=== PATIENT | female | born 1955 | race African-American/Black ===

== ENCOUNTER 2022-12-25 12:57 | Inpatient (IN) | payer MEDICARE, MEDICAID ==
[~2022-12-25] VITALS: Ht 162.6 cm; Wt 61.9 kg
[2022-12-25] MEDS ORDERED: ALBUTEROL (0.083%) 2.5MG/3ML NEB HHN STA (13:16)
[2022-12-25] MEDS ORDERED: PREDNISONE 20MG TABLET PO STA (13:16)
[2022-12-25] MEDS ORDERED: IPRATROPIUM BROMIDE (0.02%) 0.5MG/2.5ML NEB HHN STA (13:16)
[2022-12-25 13:26] VITALS: PULSE 122; RESP 25; O2SAT 93
[2022-12-25] MEDS: HYDROMORPHONE HCL/PF 2MG/ML CPJ IM PRN ×2 (13:57→18:13)
[2022-12-25] MEDS ORDERED: SODIUM CHLORIDE 0.9% 1,000 ML IV ONE (14:30)
[2022-12-25] MEDS ORDERED: AZITHROMYCIN 500 MG in DEXT 5% WATER 250 ML IV SCH (15:00)
[2022-12-25] MEDS ORDERED: CEFTRIAXONE 1GM PREMIX 50 ML IV ONE (15:00)
[2022-12-25 15:05] LABS: CHLORIDE 106 mEq/L (98-107); INDEX HEMOLYSI 1 (1-3); INDEX ICTERIC 1 (1-4); INDEX LIPEMIC 1 (1-3); POTASSIUM 3.9 mEq/L (3.5-5.1); SODIUM 141 mEq/L (136-145)
[2022-12-25 15:15] LABS: ALANINE AMINOTRANSFERASE 24 IU/L (13-61); ALBUMIN 3.5 g/dL (3.4-5.0); ASPARTATE AMINOTRANSFERASE 24 IU/L (15-37); BILIRUBIN TOTAL 0.2 mg/dL (0.1-1.0); CALCIUM 8.8 mg/dL (8.5-10.1); CARBON DIOXIDE 32 mEq/L (21-32); CREATININE 0.8 mg/dL (0.6-1.3); GLUCOSE 102 mg/dL (70-105); NT PRO B-TYPE NATRIURETIC PEP 337 pg/mL (5-125); PROTEIN TOTAL 7.6 g/dL (6.0-8.3); UREA NITROGEN BLOOD 9 mg/dL (7-21)
[2022-12-25 15:20] LABS: BASOPHILS % 0.5 % (0.0-2.0); EOSINOPHILS % 3.3 % (0.0-5.0); HEMATOCRIT. 34.3 % (36.0-48.0); LYMPHOCYTES % 22.2 % (20.0-50.0); MEAN CORPUSCULAR HEMOGLOBIN 27.9 pg (28.0-32.0); MEAN CORPUSCULAR HGB CONC 32.2 g/dL (31.0-37.0); MEAN CORPUSCULAR VOLUME 86.5 fL (81.0-99.0); MEAN PLATELET VOLUME 7.8 fl (7.4-10.4); MONOCYTES % 5.9 % (2.0-8.0); NEUTROPHILS % 68.1 % (40.0-76.0); PLATELET 306 x1000/uL (130-400); RED BLOOD CELL COUNT 3.96 mill/uL (4.2-5.4); RED CELL DISTRIBUTION WIDTH 13.5 % (11.6-14.6); WHITE BLOOD COUNT 7.4 x1000/uL (4.5-11.0)
[2022-12-25 16:21] LABS: TROPONIN I HIGH SENSITIVITY 2084 ng/L (<54)
[2022-12-25] MEDS ORDERED: METOPROLOL TARTRATE 5MG/5ML VIAL IV NR (16:30)
[2022-12-25] MEDS ORDERED: ASPIRIN 325MG EC TABLET PO NR (16:30)
[2022-12-25] MEDS ORDERED: ENOXAPARIN 80MG/0.8ML SYR SUBCUT NR (16:30)
[2022-12-25] MEDS ORDERED: MORPHINE SULFATE 4 MG/ML CPJ (NOT FOR IM USE) IV ONE (16:45)
[2022-12-25 16:56] VITALS: RESP 29
[2022-12-25] MEDS ORDERED: NITROGLYCERIN OINT 1GM/INCH UDPKT TD NR (17:00)
[2022-12-25] MEDS ORDERED: CEFTRIAXONE 1GM PREMIX 50 ML IV NR (17:00)
[2022-12-25] MEDS ORDERED: ENOXAPARIN 60MG/0.6ML SYR SUBCUT SCH (17:00)
[2022-12-25] MEDS ORDERED: AZITHROMYCIN 500MG/250ML 250 ML IV NR (17:00)
[2022-12-25] MEDS ORDERED: NITROGLYCERIN 0.4MG TABLET SL SL PRN ×2 (17:00→20:30)
[2022-12-25 17:01] LABS: ETHANOL BLOOD < 10 mg/dL (-10)
[2022-12-25] MEDS ORDERED: LORAZEPAM 2MG/ML CPJ IV ONE (17:30)
[2022-12-25 17:57] LABS: BG BASE EXCESS -3.4 mmol/L (-2.0-2.0); BG CARBOXYHEMOGLOBIN 0.3 % (0.5-1.5); BG DEOXYHEMOGLOBIN 1.5 % (0.0-5.0); BG FRACTION INSPIRED OXYGEN 60; BG HCO3 ACT 25.8 mmol/L (22.0-26.0); BG METHEMOGLOBIN 0.3 % (0.0-1.5); BG OXYGEN SATURATION 98.5 % (92.0-98.5); BG OXYHEMOGLOBIN 97.9 % (94.0-97.0); BG PCO2 67.9 mmHg (35.0-45.0); BG PH 7.197 (7.350-7.450); BG PO2 149.6 mmHg (75.0-100.0); BG SAMPLE SITE RIGHT RADIAL; BG TOTAL HEMOGLOBIN 11.9 g/dL (12.0-18.0); BG TOTAL RESPIRATORY RATE 21 b/min; BG VENT MODE MASK - BIPAP
[2022-12-25] MEDS ORDERED: IPRATROPIUM BROMIDE (0.02%) 0.5MG/2.5ML NEB HHN NR (18:30)
[2022-12-25] MEDS ORDERED: METHYLPREDNISOLONE SOD SUCC 125MG VIAL IV NR (18:30)
[2022-12-25] MEDS ORDERED: ALBUTEROL (0.083%) 2.5MG/3ML NEB HHN NR (18:30)
[2022-12-25 18:39] VITALS: RESP 23
[2022-12-25] MEDS ORDERED: FENTANYL CITRATE/PF 50MCG/ML 2ML VIAL IV ONE (19:15)
[2022-12-25] MEDS ORDERED: PROPOFOL 10MG/ML 100ML 100 ML IV ONE (19:15)
[2022-12-25 19:45] VITALS: RESP 20
[2022-12-25] MEDS ORDERED: ACETAMINOPHEN 325MG TABLET PO PRN (20:30)
[2022-12-25] MEDS ORDERED: IPRATROPIUM/ALBUTEROL 0.5-3(2.5)MG/3ML NEB NEB PRN (20:30)
[2022-12-25] MEDS ORDERED: GUAIFENESIN 200MG/10ML SUGAR FREE UDC PO PRN (20:30)
[2022-12-25] MEDS ORDERED: MAGNESIUM/ALUMINUM HYDROXIDE/SIMETHICONE 30ML UDC PO PRN (20:30)
[2022-12-25] MEDS ORDERED: ONDANSETRON HCL 4MG/2ML INJ IV PRN (20:30)
[2022-12-25] MEDS ORDERED: DOCUSATE SODIUM 100MG CAPSULE PO PRN (20:30)
[2022-12-25 20:55] LABS: BG BASE EXCESS -2.8 mmol/L (-2.0-2.0); BG CARBOXYHEMOGLOBIN 0.3 % (0.5-1.5); BG DEOXYHEMOGLOBIN 0.3 % (0.0-5.0); BG FRACTION INSPIRED OXYGEN 100; BG HCO3 ACT 24.3 mmol/L (22.0-26.0); BG METHEMOGLOBIN 0.2 % (0.0-1.5); BG OXYGEN SATURATION 99.7 % (92.0-98.5); BG OXYHEMOGLOBIN 99.2 % (94.0-97.0); BG PO2 454.2 mmHg (75.0-100.0); BG SAMPLE SITE RIGHT RADIAL; BG TOTAL HEMOGLOBIN 11.5 g/dL (12.0-18.0); BG VENT MODE VENT - AC
[2022-12-25 21:16] LABS: T4 FREE 1.05 ng/dL (0.76-1.46)
[2022-12-25 21:25] LABS: TROPONIN I HIGH SENSITIVITY 3958 ng/L (<54)
[2022-12-25 21:38] LABS: FOLIC ACID (FOLATE) SERUM 7.2 ng/mL (>5.38)
[2022-12-25 21:56] LABS: LACTIC ACID 2.7 mmol/L (0.4-2.0)
[2022-12-25 22:10] VITALS: PULSE 100; RESP 20
[2022-12-25] MEDS: MEROPENEM 1,000 MG in SODIUM CHLORIDE 0.9% 100 ML IV SCH (22:44)
[2022-12-25] MEDS: DEXT 5%/LACTATED RINGERS 1,000 ML IV SCH (22:44)
[2022-12-26] VITALS (52 sets, daily range): BP systolic 122–150; BP diastolic 60–107; PULSE 102–128; RESP 23–38; TEMP 98
[2022-12-26] MEDS: IPRATROPIUM/ALBUTEROL 0.5-3(2.5)MG/3ML NEB HHN SCH ×5 (00:24→20:30)
[2022-12-26] MEDS: METHYLPREDNISOLONE SOD SUCC 125MG VIAL IV SCH ×3 (02:00→17:32)
[2022-12-26] MEDS: PROPOFOL 10MG/ML 100ML 100 ML IV PRN ×4 (02:51→20:22)
[2022-12-26] MEDS ORDERED: DEXT 5%/0.9% NACL 1,000 ML IV ONE (03:00)
[2022-12-26] MEDS: MEROPENEM 1,000 MG in SODIUM CHLORIDE 0.9% 100 ML IV SCH ×2 (06:24→17:32)
[2022-12-26 06:37] LABS: BASOPHILS % 0.1 % (0.0-2.0); HEMATOCRIT. 30.7 % (36.0-48.0); HEMOGLOBIN. 10.2 g/dL (12.0-16.0); LYMPHOCYTES % 21.7 % (20.0-50.0); MEAN CORPUSCULAR HEMOGLOBIN 28.8 pg (28.0-32.0); MEAN CORPUSCULAR HGB CONC 33.3 g/dL (31.0-37.0); MEAN CORPUSCULAR VOLUME 86.3 fL (81.0-99.0); MEAN PLATELET VOLUME 7.9 fl (7.4-10.4); MONOCYTES % 5.1 % (2.0-8.0); NEUTROPHILS % 73.1 % (40.0-76.0); PLATELET 277 x1000/uL (130-400); RED BLOOD CELL COUNT 3.56 mill/uL (4.2-5.4); RED CELL DISTRIBUTION WIDTH 13.8 % (11.6-14.6); WHITE BLOOD COUNT 3.5 x1000/uL (4.5-11.0)
[2022-12-26 06:55] LABS: CHLORIDE 105 mEq/L (98-107); INDEX HEMOLYSI 1 (1-3); INDEX ICTERIC 1 (1-4); INDEX LIPEMIC 1 (1-3); POTASSIUM 4.1 mEq/L (3.5-5.1); SODIUM 137 mEq/L (136-145)
[2022-12-26 07:06] LABS: ALANINE AMINOTRANSFERASE 23 IU/L (13-61); ASPARTATE AMINOTRANSFERASE 37 IU/L (15-37); BILIRUBIN TOTAL 0.7 mg/dL (0.1-1.0); CALCIUM 8.4 mg/dL (8.5-10.1); CARBON DIOXIDE 27 mEq/L (21-32); CREATININE 0.8 mg/dL (0.6-1.3); GLUCOSE 201 mg/dL (70-105); PHOSPHORUS 2.4 mg/dL (2.5-4.9); PROTEIN TOTAL 6.7 g/dL (6.0-8.3); UREA NITROGEN BLOOD 12 mg/dL (7-21)
[2022-12-26 07:16] LABS: CREATINE KINASE MB FRACTION 7.6 ng/mL (0.5-3.6)
[2022-12-26 07:23] LABS: BG BASE EXCESS 2.1 mmol/L (-2.0-2.0); BG CARBOXYHEMOGLOBIN 0.3 % (0.5-1.5); BG DEOXYHEMOGLOBIN 0.5 % (0.0-5.0); BG HCO3 ACT 25.5 mmol/L (22.0-26.0); BG METHEMOGLOBIN 0.2 % (0.0-1.5); BG OXYGEN SATURATION 99.5 % (92.0-98.5); BG PCO2 35.3 mmHg (35.0-45.0); BG PH 7.476 (7.350-7.450); BG PO2 273.8 mmHg (75.0-100.0); BG SAMPLE SITE RIGHT RADIAL; BG TOTAL HEMOGLOBIN 11.2 g/dL (12.0-18.0); BG VENT MODE VENT - AC
[2022-12-26] MEDS ORDERED: MAGNESIUM 2 G PREMIX 50 ML IV NR (07:45)
[2022-12-26] MEDS ORDERED: SODIUM PHOS,M-BASIC-D-BASIC 10 MM in DEXT 5% WATER 246.6667 ML IV NR (09:00)
[2022-12-26] MEDS: DEXT 5%/LACTATED RINGERS 1,000 ML IV SCH ×2 (10:58→23:10)
[2022-12-26] MEDS: ASPIRIN 325MG EC TABLET PO SCH (10:58)
[2022-12-26] MEDS: PANTOPRAZOLE SODIUM 40 MG/VIAL IV SCH (10:58)
[2022-12-26] MEDS: ENOXAPARIN 40MG/0.4ML SYR SUBCUT SCH (10:59)
[2022-12-27] VITALS (102 sets, daily range): BP systolic 122–153; BP diastolic 75–111; PULSE 100–126; RESP 19–38; TEMP 97.7–98.4
[2022-12-27] MEDS: IPRATROPIUM/ALBUTEROL 0.5-3(2.5)MG/3ML NEB HHN SCH ×6 (00:14→20:20)
[2022-12-27] MEDS: METHYLPREDNISOLONE SOD SUCC 125MG VIAL IV SCH ×3 (02:19→17:54)
[2022-12-27] MEDS: PROPOFOL 10MG/ML 100ML 100 ML IV PRN ×4 (03:39→17:53)
[2022-12-27] MEDS: CLONIDINE 0.1MG TABLET PO PRN (04:07)
[2022-12-27 05:44] LABS: HEMATOCRIT 33.5 % (36.0-48.0); HEMOGLOBIN 10.9 g/dL (12.0-16.0); MEAN CORPUSCULAR HGB CONC 32.4 g/dL (31.0-37.0); MEAN CORPUSCULAR VOLUME 86.4 fL (81.0-99.0); PLATELET 279 x1000/uL (130-400); RED BLOOD CELL COUNT 3.88 mill/uL (4.2-5.4); WHITE BLOOD COUNT 8.9 x1000/uL (4.5-11.0)
[2022-12-27 05:45] LABS: CHLORIDE 103 mEq/L (98-107); INDEX HEMOLYSI 1 (1-3); INDEX ICTERIC 1 (1-4); INDEX LIPEMIC 1 (1-3); POTASSIUM 3.7 mEq/L (3.5-5.1); SODIUM 137 mEq/L (136-145)
[2022-12-27 05:52] LABS: ALANINE AMINOTRANSFERASE 22 IU/L (13-61); ALBUMIN 3.3 g/dL (3.4-5.0); ASPARTATE AMINOTRANSFERASE 36 IU/L (15-37); BILIRUBIN TOTAL 0.3 mg/dL (0.1-1.0); CARBON DIOXIDE 27 mEq/L (21-32); CREATININE 0.7 mg/dL (0.6-1.3); GLUCOSE 167 mg/dL (70-105); PHOSPHORUS 2.8 mg/dL (2.5-4.9); PROTEIN TOTAL 7.3 g/dL (6.0-8.3); TRIGLYCERIDE 148 mg/dL (0-150); UREA NITROGEN BLOOD 14 mg/dL (7-21)
[2022-12-27] MEDS: MEROPENEM 1,000 MG in SODIUM CHLORIDE 0.9% 100 ML IV SCH ×2 (06:14→17:54)
[2022-12-27 08:28] LABS: BG BASE EXCESS 4.2 mmol/L (-2.0-2.0); BG CARBOXYHEMOGLOBIN 0.3 % (0.5-1.5); BG DEOXYHEMOGLOBIN 1.8 % (0.0-5.0); BG FRACTION INSPIRED OXYGEN 60; BG HCO3 ACT 28.2 mmol/L (22.0-26.0); BG METHEMOGLOBIN 0.2 % (0.0-1.5); BG OXYGEN SATURATION 98.2 % (92.0-98.5); BG OXYHEMOGLOBIN 97.7 % (94.0-97.0); BG PH 7.466 (7.350-7.450); BG PO2 115.6 mmHg (75.0-100.0); BG SAMPLE SITE LEFT RADIAL; BG TOTAL HEMOGLOBIN 11.1 g/dL (12.0-18.0); BG VENT MODE VENT - AC
[2022-12-27] MEDS: PANTOPRAZOLE SODIUM 40 MG/VIAL IV SCH (09:44)
[2022-12-27] MEDS: ENOXAPARIN 40MG/0.4ML SYR SUBCUT SCH (09:45)
[2022-12-27] MEDS: ASPIRIN 325MG EC TABLET PO SCH (09:45)
[2022-12-27] MEDS: DEXT 5%/LACTATED RINGERS 1,000 ML IV SCH (12:51)
[2022-12-27] MEDS: ATORVASTATIN CALCIUM 40MG TABLET PO SCH (21:34)
[2022-12-28] VITALS (106 sets, daily range): BP systolic 110–199; BP diastolic 38–110; PULSE 87–127; RESP 13–31; TEMP 98–98.9
[2022-12-28] MEDS: PROPOFOL 10MG/ML 100ML 100 ML IV PRN ×4 (00:13→16:05)
[2022-12-28] MEDS: DEXT 5%/LACTATED RINGERS 1,000 ML IV SCH ×2 (02:34→16:06)
[2022-12-28] MEDS: METHYLPREDNISOLONE SOD SUCC 125MG VIAL IV SCH ×3 (02:35→18:21)
[2022-12-28] MEDS: IPRATROPIUM/ALBUTEROL 0.5-3(2.5)MG/3ML NEB HHN SCH ×6 (04:10→19:56)
[2022-12-28 05:43] LABS: HEMATOCRIT 32.5 % (36.0-48.0); HEMOGLOBIN 10.5 g/dL (12.0-16.0); MEAN CORPUSCULAR HEMOGLOBIN 27.9 pg (28.0-32.0); MEAN CORPUSCULAR HGB CONC 32.4 g/dL (31.0-37.0); MEAN CORPUSCULAR VOLUME 86.2 fL (81.0-99.0); PLATELET 286 x1000/uL (130-400); RED BLOOD CELL COUNT 3.77 mill/uL (4.2-5.4); RED CELL DISTRIBUTION WIDTH 13.9 % (11.6-14.6); WHITE BLOOD COUNT 8.2 x1000/uL (4.5-11.0)
[2022-12-28 05:53] LABS: CHLORIDE 110 mEq/L (98-107); INDEX HEMOLYSI 1 (1-3); INDEX ICTERIC 1 (1-4); INDEX LIPEMIC 1 (1-3); POTASSIUM 3.7 mEq/L (3.5-5.1); SODIUM 143 mEq/L (136-145)
[2022-12-28 05:57] LABS: CARBON DIOXIDE 29 mEq/L (21-32); CREATININE 0.7 mg/dL (0.6-1.3); GLUCOSE 145 mg/dL (70-105); TRIGLYCERIDE 103 mg/dL (0-150); UREA NITROGEN BLOOD 19 mg/dL (7-21)
[2022-12-28] MEDS: MEROPENEM 1,000 MG in SODIUM CHLORIDE 0.9% 100 ML IV SCH ×2 (06:18→18:19)
[2022-12-28 07:40] LABS: BG BASE EXCESS 5.6 mmol/L (-2.0-2.0); BG CARBOXYHEMOGLOBIN 0.3 % (0.5-1.5); BG DEOXYHEMOGLOBIN 1.2 % (0.0-5.0); BG HCO3 ACT 29.8 mmol/L (22.0-26.0); BG METHEMOGLOBIN 0.3 % (0.0-1.5); BG OXYGEN SATURATION 98.8 % (92.0-98.5); BG OXYHEMOGLOBIN 98.2 % (94.0-97.0); BG PCO2 42.3 mmHg (35.0-45.0); BG PH 7.466 (7.350-7.450); BG PO2 158.4 mmHg (75.0-100.0); BG SAMPLE SITE RIGHT RADIAL; BG VENT MODE VENT - AC
[2022-12-28] MEDS: ASPIRIN 325MG EC TABLET PO SCH (09:04)
[2022-12-28] MEDS: ENOXAPARIN 40MG/0.4ML SYR SUBCUT SCH (09:04)
[2022-12-28] MEDS: PANTOPRAZOLE SODIUM 40 MG/VIAL IV SCH (09:04)
[2022-12-28] MEDS ORDERED: ENOXAPARIN 30MG/0.3ML SYR SUBCUT NR (11:30)
[2022-12-28] MEDS: CLONIDINE 0.1MG TABLET PO PRN (14:47)
[2022-12-28 17:34] LABS: PROTHROMBIN TIME 10.6 sec (9.6-11.0)
[2022-12-28] MEDS: AMLODIPINE 10MG TABLET PO SCH (18:20)
[2022-12-28] MEDS: NITROGLYCERIN OINT 1GM/INCH UDPKT TD SCH ×2 (18:20→21:38)
[2022-12-28] MEDS: ENOXAPARIN 60MG/0.6ML SYR SUBCUT SCH (21:35)
[2022-12-28] MEDS: ATORVASTATIN CALCIUM 40MG TABLET PO SCH (21:35)
[2022-12-28] MEDS ORDERED: FENTANYL CITRATE/PF 2,500 MCG in SODIUM CHLORIDE 0.9% 200 ML IV PRN (23:45)
[2022-12-29] VITALS (103 sets, daily range): BP systolic 94–161; BP diastolic 54–107; PULSE 76–124; RESP 11–33; TEMP 98.1–98.6
[2022-12-29] MEDS: IPRATROPIUM/ALBUTEROL 0.5-3(2.5)MG/3ML NEB HHN SCH ×6 (00:01→19:59)
[2022-12-29] MEDS: FENTANYL CITRATE 2,500 MCG in SODIUM CHLORIDE 0.9% 200 ML IV PRN (00:25)
[2022-12-29] MEDS: METHYLPREDNISOLONE SOD SUCC 125MG VIAL IV SCH ×3 (02:46→16:24)
[2022-12-29 05:41] LABS: HEMOGLOBIN 9.2 g/dL (12.0-16.0); MEAN CORPUSCULAR HEMOGLOBIN 28.2 pg (28.0-32.0); MEAN CORPUSCULAR HGB CONC 32.7 g/dL (31.0-37.0); MEAN CORPUSCULAR VOLUME 86.5 fL (81.0-99.0); PLATELET 207 x1000/uL (130-400); RED BLOOD CELL COUNT 3.24 mill/uL (4.2-5.4); RED CELL DISTRIBUTION WIDTH 13.7 % (11.6-14.6); WHITE BLOOD COUNT 7.7 x1000/uL (4.5-11.0)
[2022-12-29] MEDS: DEXT 5%/LACTATED RINGERS 1,000 ML IV SCH ×3 (06:00→23:52)
[2022-12-29] MEDS: NITROGLYCERIN OINT 1GM/INCH UDPKT TD SCH ×3 (06:00→22:00)
[2022-12-29 06:05] LABS: CHLORIDE 112 mEq/L (98-107); INDEX HEMOLYSI 1 (1-3); INDEX ICTERIC 1 (1-4); INDEX LIPEMIC 1 (1-3); POTASSIUM 3.4 mEq/L (3.5-5.1); SODIUM 146 mEq/L (136-145)
[2022-12-29 06:18] LABS: CALCIUM 7.7 mg/dL (8.5-10.1); CARBON DIOXIDE 30 mEq/L (21-32); CREATININE 0.7 mg/dL (0.6-1.3); GLUCOSE 129 mg/dL (70-105); PHOSPHORUS 2.4 mg/dL (2.5-4.9); UREA NITROGEN BLOOD 20 mg/dL (7-21)
[2022-12-29] MEDS: MEROPENEM 1,000 MG in SODIUM CHLORIDE 0.9% 100 ML IV SCH ×2 (06:29→16:24)
[2022-12-29] MEDS: AMLODIPINE 10MG TABLET PO SCH (09:00)
[2022-12-29] MEDS: ASPIRIN 81MG EC TABLET PO SCH (09:20)
[2022-12-29] MEDS: PANTOPRAZOLE SODIUM 40 MG/VIAL IV SCH (09:20)
[2022-12-29] MEDS: ENOXAPARIN 60MG/0.6ML SYR SUBCUT SCH ×2 (09:20→21:42)
[2022-12-29] MEDS ORDERED: POTASSIUM PHOS,M-BASIC-D-BASIC 20 MMOL in DEXT 5% WATER 243.3333 ML IV NR (09:30)
[2022-12-29] MEDS: PROPOFOL 10MG/ML 100ML 100 ML IV PRN ×2 (09:33→16:24)
[2022-12-29 09:38] LABS: BG BASE EXCESS 5.5 mmol/L (-2.0-2.0); BG CARBOXYHEMOGLOBIN 0.2 % (0.5-1.5); BG DEOXYHEMOGLOBIN 1.2 % (0.0-5.0); BG FRACTION INSPIRED OXYGEN 40; BG HCO3 ACT 28.9 mmol/L (22.0-26.0); BG METHEMOGLOBIN 0.5 % (0.0-1.5); BG OXYGEN SATURATION 98.8 % (92.0-98.5); BG OXYHEMOGLOBIN 98.1 % (94.0-97.0); BG PCO2 37.4 mmHg (35.0-45.0); BG PH 7.506 (7.350-7.450); BG PO2 163.5 mmHg (75.0-100.0); BG SAMPLE SITE RIGHT RADIAL; BG TOTAL HEMOGLOBIN 8.4 g/dL (12.0-18.0); BG VENT MODE VENT - AC
[2022-12-29] MEDS: QUETIAPINE FUMARATE 25MG TABLET PO SCH (16:24)
[2022-12-29] MEDS: ATORVASTATIN CALCIUM 40MG TABLET PO SCH (21:41)
[2022-12-30] VITALS (103 sets, daily range): BP systolic 68–154; BP diastolic 32–96; PULSE 78–110; RESP 13–21; TEMP 97.8–98.2
[2022-12-30] MEDS: IPRATROPIUM/ALBUTEROL 0.5-3(2.5)MG/3ML NEB HHN SCH ×6 (00:15→20:26)
[2022-12-30] MEDS: METHYLPREDNISOLONE SOD SUCC 125MG VIAL IV SCH ×3 (02:34→18:01)
[2022-12-30 05:34] LABS: HEMATOCRIT 26.3 % (36.0-48.0); HEMOGLOBIN 8.5 g/dL (12.0-16.0); MEAN CORPUSCULAR HEMOGLOBIN 27.8 pg (28.0-32.0); MEAN CORPUSCULAR HGB CONC 32.2 g/dL (31.0-37.0); MEAN CORPUSCULAR VOLUME 86.3 fL (81.0-99.0); PLATELET 198 x1000/uL (130-400); RED BLOOD CELL COUNT 3.04 mill/uL (4.2-5.4); RED CELL DISTRIBUTION WIDTH 13.4 % (11.6-14.6); WHITE BLOOD COUNT 4.3 x1000/uL (4.5-11.0)
[2022-12-30 05:37] LABS: CHLORIDE 114 mEq/L (98-107); INDEX HEMOLYSI 1 (1-3); INDEX ICTERIC 1 (1-4); INDEX LIPEMIC 1 (1-3); POTASSIUM 3.8 mEq/L (3.5-5.1); SODIUM 146 mEq/L (136-145)
[2022-12-30 05:55] LABS: CALCIUM 8.2 mg/dL (8.5-10.1); CARBON DIOXIDE 30 mEq/L (21-32); CREATININE 0.7 mg/dL (0.6-1.3); GLUCOSE 135 mg/dL (70-105); PHOSPHORUS 3.9 mg/dL (2.5-4.9); TRIGLYCERIDE 87 mg/dL (0-150); UREA NITROGEN BLOOD 22 mg/dL (7-21)
[2022-12-30] MEDS: NITROGLYCERIN OINT 1GM/INCH UDPKT TD SCH ×2 (06:00→14:14)
[2022-12-30] MEDS: MEROPENEM 1,000 MG in SODIUM CHLORIDE 0.9% 100 ML IV SCH ×2 (06:24→18:00)
[2022-12-30] MEDS: PROPOFOL 10MG/ML 100ML 100 ML IV PRN ×4 (08:07→20:23)
[2022-12-30] MEDS: QUETIAPINE FUMARATE 25MG TABLET PO SCH (09:03)
[2022-12-30] MEDS: PANTOPRAZOLE SODIUM 40 MG/VIAL IV SCH (09:03)
[2022-12-30] MEDS: AMLODIPINE 10MG TABLET PO SCH (09:03)
[2022-12-30] MEDS: ENOXAPARIN 60MG/0.6ML SYR SUBCUT SCH ×2 (09:04→20:26)
[2022-12-30] MEDS: ASPIRIN 81MG EC TABLET PO SCH (09:04)
[2022-12-30 12:14] LABS: BG BASE EXCESS 6.9 mmol/L (-2.0-2.0); BG CARBOXYHEMOGLOBIN 0.3 % (0.5-1.5); BG DEOXYHEMOGLOBIN 9.6 % (0.0-5.0); BG FRACTION INSPIRED OXYGEN 30; BG HCO3 ACT 32.5 mmol/L (22.0-26.0); BG METHEMOGLOBIN 0.2 % (0.0-1.5); BG OXYGEN SATURATION 90.4 % (92.0-98.5); BG OXYHEMOGLOBIN 89.9 % (94.0-97.0); BG PCO2 52.2 mmHg (35.0-45.0); BG PH 7.412 (7.350-7.450); BG PO2 61.2 mmHg (75.0-100.0); BG SAMPLE SITE RIGHT RADIAL; BG TOTAL HEMOGLOBIN 9.4 g/dL (12.0-18.0); BG TOTAL RESPIRATORY RATE 14 b/min; BG VENT MODE VENT - AC
[2022-12-30] MEDS: DEXT 5%/LACTATED RINGERS 1,000 ML IV SCH (12:57)
[2022-12-30] MEDS: FENTANYL CITRATE 2,500 MCG in SODIUM CHLORIDE 0.9% 200 ML IV PRN (15:05)
[2022-12-30] MEDS ORDERED: DOCUSATE SODIUM SUGAR FREE 100MG/10ML UDC PO PRN (19:57)
[2022-12-30] MEDS: ATORVASTATIN CALCIUM 40MG TABLET PO SCH (20:26)
[2022-12-31] VITALS (109 sets, daily range): BP systolic 89–175; BP diastolic 48–145; PULSE 77–130; RESP 10–53; TEMP 97.9–99
[2022-12-31] MEDS: NITROGLYCERIN OINT 1GM/INCH UDPKT TD SCH ×4 (00:13→21:35)
[2022-12-31] MEDS: IPRATROPIUM/ALBUTEROL 0.5-3(2.5)MG/3ML NEB HHN SCH ×4 (00:22→20:32)
[2022-12-31] MEDS: PROPOFOL 10MG/ML 100ML 100 ML IV PRN ×4 (01:54→18:52)
[2022-12-31] MEDS: METHYLPREDNISOLONE SOD SUCC 125MG VIAL IV SCH ×3 (02:12→18:51)
[2022-12-31 08:31] LABS: BG FRACTION INSPIRED OXYGEN 30; BG METHEMOGLOBIN 0.1 % (0.0-1.5); BG OXYHEMOGLOBIN 88.9 % (94.0-97.0); BG PCO2 59.5 mmHg (35.0-45.0); BG PH 7.335 (7.350-7.450); BG SAMPLE SITE RIGHT RADIAL; BG TOTAL HEMOGLOBIN 10.5 g/dL (12.0-18.0); BG VENT MODE VENT - AC
[2022-12-31] MEDS ORDERED: MORPHINE SULFATE 2 MG/ML CPJ (NOT FOR IM USE) IV PRN (09:00)
[2022-12-31] MEDS ORDERED: NALOXONE HCL 0.4MG/ML VIAL IV PRN (09:00)
[2022-12-31] MEDS ORDERED: PANTOPRAZOLE 80 MG in SODIUM CHLORIDE 0.9% 100 ML IV SCH (09:00)
[2022-12-31] MEDS: CHOLECALCIFEROL (D3) 1000 UNIT TABLET NG SCH (09:10)
[2022-12-31] MEDS: PANTOPRAZOLE SODIUM 40 MG/VIAL IV SCH (09:10)
[2022-12-31] MEDS: AMLODIPINE 10MG TABLET PO SCH (09:11)
[2022-12-31] MEDS: CLONIDINE 0.1MG TABLET PO PRN (09:12)
[2022-12-31] MEDS: QUETIAPINE FUMARATE 50MG TABLET PO SCH (09:12)
[2022-12-31] MEDS: ASPIRIN 81MG TABLET PO SCH (09:13)
[2022-12-31] MEDS: ENOXAPARIN 60MG/0.6ML SYR SUBCUT SCH ×2 (09:13→21:35)
[2022-12-31] MEDS ORDERED: OCTREOTIDE 1,000 MCG in SODIUM CHLORIDE 0.9% 98 ML IV SCH (10:00)
[2022-12-31 10:08] LABS: HEMATOCRIT 28.5 % (36.0-48.0); HEMOGLOBIN 9.2 g/dL (12.0-16.0); MEAN CORPUSCULAR HEMOGLOBIN 28.3 pg (28.0-32.0); MEAN CORPUSCULAR HGB CONC 32.3 g/dL (31.0-37.0); MEAN CORPUSCULAR VOLUME 87.7 fL (81.0-99.0); PLATELET 238 x1000/uL (130-400); RED BLOOD CELL COUNT 3.25 mill/uL (4.2-5.4); RED CELL DISTRIBUTION WIDTH 13.8 % (11.6-14.6); WHITE BLOOD COUNT 4.5 x1000/uL (4.5-11.0)
[2022-12-31 10:13] LABS: CALCIUM 8.2 mg/dL (8.5-10.1); CHLORIDE 113 mEq/L (98-107); INDEX HEMOLYSI 1 (1-3); INDEX ICTERIC 1 (1-4); INDEX LIPEMIC 1 (1-3); POTASSIUM 4.2 mEq/L (3.5-5.1); SODIUM 146 mEq/L (136-145)
[2022-12-31 10:17] LABS: CARBON DIOXIDE 29 mEq/L (21-32); CREATININE 0.8 mg/dL (0.6-1.3); GLUCOSE 120 mg/dL (70-105); PHOSPHORUS 4.5 mg/dL (2.5-4.9); UREA NITROGEN BLOOD 24 mg/dL (7-21)
[2022-12-31] MEDS ORDERED: LIDOCAINE HCL 1% 10 MG/ML 10ML VIAL ONE (10:21)
[2022-12-31] MEDS: DEXT 5%/LACTATED RINGERS 1,000 ML IV SCH ×2 (11:38→21:35)
[2022-12-31] MEDS ORDERED: PROPOFOL 10MG/ML 100ML 100 ML IV PRN (11:45)
[2022-12-31 15:20] LABS: BG BASE EXCESS 6.9 mmol/L (-2.0-2.0); BG CARBOXYHEMOGLOBIN 0.3 % (0.5-1.5); BG DEOXYHEMOGLOBIN 6.2 % (0.0-5.0); BG FRACTION INSPIRED OXYGEN 30; BG HCO3 ACT 32.8 mmol/L (22.0-26.0); BG METHEMOGLOBIN 0.4 % (0.0-1.5); BG OXYGEN SATURATION 93.8 % (92.0-98.5); BG OXYHEMOGLOBIN 93.1 % (94.0-97.0); BG PCO2 54.5 mmHg (35.0-45.0); BG PH 7.398 (7.350-7.450); BG SAMPLE SITE RIGHT RADIAL; BG TOTAL RESPIRATORY RATE 11 b/min; BG VENT MODE VENT - SIMV
[2022-12-31 16:05] LABS: CLARITY URINE CLOUDY (CLEAR); COLOR URINE YELLOW (YELLOW); GLUCOSE URINE NEGATIVE (NEGATIVE); KETONES URINE NEGATIVE (NEGATIVE); LEUKOCYTE ESTERASE URINE NEGATIVE (NEGATIVE); NITRITE URINE NEGATIVE (NEGATIVE); OCCULT BLOOD URINE 3+ (NEGATIVE); PH URINE 5.5 (4.5-8.0); PROTEIN URINE TRACE (NEGATIVE); SPECIFIC GRAVITY URINE 1.013 (1.005-1.030); UROBILINOGEN URINE 0.2 E.U./dL (0.2-1.0)
[2022-12-31 16:19] LABS: *AMPHETAMINES SCREEN URINE NEGATIVE (NEGATIVE); *BARBITURATES SCREEN URINE NEGATIVE (NEGATIVE); *BENZODIAZEPINES SCREEN URINE NEGATIVE (NEGATIVE); *COCAINE SCREEN URINE NEGATIVE (NEGATIVE); CANNABINOID URINE SCREEN NEGATIVE (NEGATIVE); ECSTASY MDMA SCREEN URINE NEGATIVE (NEGATIVE); METHADONE URINE SCREEN NEGATIVE (NEGATIVE); OPIATES URINE SCREEN NEGATIVE (NEGATIVE); PHENCYCLIDINE URINE SCREEN NEGATIVE (NEGATIVE)
[2022-12-31 17:43] LABS: BACTERIA URINE 1+; RBC URINE TNTC /hpf (0-2); SQUAMOUS EPITHELIAL CELL URINE 1+ /lpf (RARE/1+); WBC URINE 0-2 /hpf (0-2)
[2022-12-31] MEDS: ATORVASTATIN CALCIUM 40MG TABLET PO SCH (21:35)
[2022-12-31] MEDS: FENTANYL CITRATE 2,500 MCG in SODIUM CHLORIDE 0.9% 200 ML IV PRN (21:38)
[2023-01-01] VITALS (102 sets, daily range): BP systolic 99–159; BP diastolic 55–105; PULSE 75–116; RESP 10–37; TEMP 98.1–98.8
[2023-01-01] MEDS: IPRATROPIUM/ALBUTEROL 0.5-3(2.5)MG/3ML NEB HHN SCH ×6 (00:23→21:12)
[2023-01-01] MEDS: METHYLPREDNISOLONE SOD SUCC 125MG VIAL IV SCH ×3 (02:48→18:36)
[2023-01-01] MEDS: PROPOFOL 10MG/ML 100ML 100 ML IV PRN ×3 (03:17→20:08)
[2023-01-01] MEDS: NITROGLYCERIN OINT 1GM/INCH UDPKT TD SCH ×3 (05:22→21:30)
[2023-01-01 05:56] LABS: HEMATOCRIT 30.9 % (36.0-48.0); MEAN CORPUSCULAR HEMOGLOBIN 28.6 pg (28.0-32.0); MEAN CORPUSCULAR HGB CONC 32.5 g/dL (31.0-37.0); MEAN CORPUSCULAR VOLUME 87.9 fL (81.0-99.0); PLATELET 139 x1000/uL (130-400); RED BLOOD CELL COUNT 3.51 mill/uL (4.2-5.4); WHITE BLOOD COUNT 6.6 x1000/uL (4.5-11.0)
[2023-01-01 06:01] LABS: CALCIUM 7.6 mg/dL (8.5-10.1); CHLORIDE 111 mEq/L (98-107); INDEX HEMOLYSI 2 (1-3); INDEX ICTERIC 1 (1-4); INDEX LIPEMIC 1 (1-3); POTASSIUM 4.5 mEq/L (3.5-5.1); SODIUM 145 mEq/L (136-145)
[2023-01-01 06:05] LABS: CARBON DIOXIDE 32 mEq/L (21-32); CREATININE 0.6 mg/dL (0.6-1.3); GLUCOSE 135 mg/dL (70-105); PHOSPHORUS 3.6 mg/dL (2.5-4.9); TRIGLYCERIDE 120 mg/dL (0-150); UREA NITROGEN BLOOD 22 mg/dL (7-21)
[2023-01-01] MEDS: PANTOPRAZOLE SODIUM 40 MG/VIAL IV SCH (08:15)
[2023-01-01] MEDS: CHOLECALCIFEROL (D3) 1000 UNIT TABLET NG SCH (08:16)
[2023-01-01] MEDS: QUETIAPINE FUMARATE 50MG TABLET PO SCH (08:16)
[2023-01-01] MEDS: AMLODIPINE 10MG TABLET PO SCH (08:16)
[2023-01-01] MEDS: ASPIRIN 81MG TABLET PO SCH (08:16)
[2023-01-01] MEDS: ENOXAPARIN 60MG/0.6ML SYR SUBCUT SCH ×2 (08:17→21:30)
[2023-01-01] MEDS ORDERED: MIDAZOLAM HCL 5 MG/5 ML VIAL IV SCH (09:00)
[2023-01-01 09:37] LABS: BG BASE EXCESS 4.2 mmol/L (-2.0-2.0); BG CARBOXYHEMOGLOBIN 0.3 % (0.5-1.5); BG DEOXYHEMOGLOBIN 3.3 % (0.0-5.0); BG FRACTION INSPIRED OXYGEN 30; BG METHEMOGLOBIN 0.1 % (0.0-1.5); BG OXYGEN SATURATION 96.7 % (92.0-98.5); BG OXYHEMOGLOBIN 96.3 % (94.0-97.0); BG PCO2 51.5 mmHg (35.0-45.0); BG PH 7.383 (7.350-7.450); BG PO2 97.6 mmHg (75.0-100.0); BG SAMPLE SITE RIGHT RADIAL; BG TOTAL HEMOGLOBIN 9.2 g/dL (12.0-18.0); BG VENT MODE VENT - AC
[2023-01-01] MEDS: DEXT 5%/LACTATED RINGERS 1,000 ML IV SCH (12:45)
[2023-01-01] MEDS: MIDAZOLAM HCL 5 MG/5 ML VIAL IV PRN ×2 (14:16→18:35)
[2023-01-01] MEDS: CHLORDIAZEPOXIDE 5 MG CAPSULE PO SCH ×2 (14:16→21:30)
[2023-01-01] MEDS: ATORVASTATIN CALCIUM 40MG TABLET PO SCH (21:30)
[2023-01-01] MEDS: FENTANYL CITRATE 2,500 MCG in SODIUM CHLORIDE 0.9% 200 ML IV PRN (23:38)
[2023-01-02] VITALS (101 sets, daily range): BP systolic 101–182; BP diastolic 55–111; PULSE 65–113; RESP 10–33; TEMP 98.3–99
[2023-01-02] MEDS: PROPOFOL 10MG/ML 100ML 100 ML IV PRN ×3 (00:24→09:18)
[2023-01-02] MEDS: IPRATROPIUM/ALBUTEROL 0.5-3(2.5)MG/3ML NEB HHN SCH ×6 (00:33→19:53)
[2023-01-02] MEDS: METHYLPREDNISOLONE SOD SUCC 125MG VIAL IV SCH ×3 (02:53→17:31)
[2023-01-02] MEDS: DEXT 5%/LACTATED RINGERS 1,000 ML IV SCH ×2 (04:26→17:31)
[2023-01-02] MEDS: CHLORDIAZEPOXIDE 5 MG CAPSULE PO SCH ×3 (05:32→22:05)
[2023-01-02] MEDS: NITROGLYCERIN OINT 1GM/INCH UDPKT TD SCH ×3 (05:32→22:05)
[2023-01-02 06:00] LABS: HEMATOCRIT 31.4 % (36.0-48.0); HEMOGLOBIN 10.1 g/dL (12.0-16.0); MEAN CORPUSCULAR HEMOGLOBIN 28.4 pg (28.0-32.0); MEAN CORPUSCULAR HGB CONC 32.1 g/dL (31.0-37.0); MEAN CORPUSCULAR VOLUME 88.5 fL (81.0-99.0); PLATELET 270 x1000/uL (130-400); RED BLOOD CELL COUNT 3.55 mill/uL (4.2-5.4); RED CELL DISTRIBUTION WIDTH 13.6 % (11.6-14.6); WHITE BLOOD COUNT 8.1 x1000/uL (4.5-11.0)
[2023-01-02 06:06] LABS: CALCIUM 8.2 mg/dL (8.5-10.1); CARBON DIOXIDE 35 mEq/L (21-32); CHLORIDE 106 mEq/L (98-107); INDEX HEMOLYSI 1 (1-3); INDEX ICTERIC 1 (1-4); INDEX LIPEMIC 1 (1-3); POTASSIUM 4.4 mEq/L (3.5-5.1); SODIUM 143 mEq/L (136-145); UREA NITROGEN BLOOD 19 mg/dL (7-21)
[2023-01-02 06:10] LABS: CREATININE 0.6 mg/dL (0.6-1.3); GLUCOSE 129 mg/dL (70-105); TRIGLYCERIDE 113 mg/dL (0-150)
[2023-01-02] MEDS: PANTOPRAZOLE SODIUM 40 MG/VIAL IV SCH (08:47)
[2023-01-02] MEDS: ASPIRIN 81MG TABLET PO SCH (08:47)
[2023-01-02] MEDS: CHOLECALCIFEROL (D3) 1000 UNIT TABLET NG SCH (08:47)
[2023-01-02] MEDS: AMLODIPINE 10MG TABLET PO SCH (08:48)
[2023-01-02] MEDS: QUETIAPINE FUMARATE 50MG TABLET PO SCH (08:48)
[2023-01-02] MEDS: ENOXAPARIN 60MG/0.6ML SYR SUBCUT SCH (08:49)
[2023-01-02 08:54] LABS: BG BASE EXCESS 12.7 mmol/L (-2.0-2.0); BG CARBOXYHEMOGLOBIN 0.4 % (0.5-1.5); BG DEOXYHEMOGLOBIN 6.7 % (0.0-5.0); BG FRACTION INSPIRED OXYGEN 30; BG HCO3 ACT 39.9 mmol/L (22.0-26.0); BG METHEMOGLOBIN 0.2 % (0.0-1.5); BG OXYGEN SATURATION 93.3 % (92.0-98.5); BG OXYHEMOGLOBIN 92.7 % (94.0-97.0); BG PCO2 66.2 mmHg (35.0-45.0); BG PH 7.398 (7.350-7.450); BG SAMPLE SITE RIGHT RADIAL; BG TOTAL HEMOGLOBIN 11.2 g/dL (12.0-18.0); BG VENT MODE VENT - SIMV
[2023-01-02] MEDS: CLONIDINE 0.1MG TABLET PO PRN (09:17)
[2023-01-02] MEDS: DEXMEDETOMIDINE 400 MCG/100 ML 100 ML IV PRN ×2 (11:08→17:33)
[2023-01-02] MEDS: LOSARTAN POTASSIUM 25 MG TABLET PO SCH (14:49)
[2023-01-02] MEDS: ATORVASTATIN CALCIUM 40MG TABLET PO SCH (20:18)
[2023-01-02] MEDS: ENOXAPARIN 80MG/0.8ML SYR SUBCUT SCH (20:18)
[2023-01-03] VITALS (106 sets, daily range): BP systolic 91–194; BP diastolic 49–138; PULSE 59–107; RESP 10–43; TEMP 98–98.7
[2023-01-03] MEDS: IPRATROPIUM/ALBUTEROL 0.5-3(2.5)MG/3ML NEB HHN SCH ×5 (00:05→20:34)
[2023-01-03] MEDS: DEXMEDETOMIDINE 400 MCG/100 ML 100 ML IV PRN ×2 (00:26→05:51)
[2023-01-03] MEDS: MIDAZOLAM HCL 5 MG/5 ML VIAL IV PRN ×2 (00:51→05:16)
[2023-01-03] MEDS: METHYLPREDNISOLONE SOD SUCC 125MG VIAL IV SCH ×3 (01:37→17:24)
[2023-01-03] MEDS: DEXT 5%/LACTATED RINGERS 1,000 ML IV SCH (04:47)
[2023-01-03] MEDS: NITROGLYCERIN OINT 1GM/INCH UDPKT TD SCH ×3 (05:20→21:06)
[2023-01-03] MEDS: CHLORDIAZEPOXIDE 5 MG CAPSULE PO SCH ×4 (05:21→21:06)
[2023-01-03 05:59] LABS: HEMATOCRIT 32.8 % (36.0-48.0); HEMOGLOBIN 10.5 g/dL (12.0-16.0); MEAN CORPUSCULAR HEMOGLOBIN 28.3 pg (28.0-32.0); MEAN CORPUSCULAR HGB CONC 31.9 g/dL (31.0-37.0); MEAN CORPUSCULAR VOLUME 88.9 fL (81.0-99.0); PLATELET 235 x1000/uL (130-400); RED BLOOD CELL COUNT 3.69 mill/uL (4.2-5.4); RED CELL DISTRIBUTION WIDTH 13.6 % (11.6-14.6); WHITE BLOOD COUNT 9.8 x1000/uL (4.5-11.0)
[2023-01-03 06:34] LABS: CHLORIDE 103 mEq/L (98-107); INDEX HEMOLYSI 1 (1-3); INDEX ICTERIC 1 (1-4); INDEX LIPEMIC 1 (1-3); POTASSIUM 4.3 mEq/L (3.5-5.1); SODIUM 142 mEq/L (136-145)
[2023-01-03 06:42] LABS: CALCIUM 8.4 mg/dL (8.5-10.1); CARBON DIOXIDE 35 mEq/L (21-32); CREATININE 0.6 mg/dL (0.6-1.3); GLUCOSE 164 mg/dL (70-105); UREA NITROGEN BLOOD 21 mg/dL (7-21)
[2023-01-03] MEDS ORDERED: MIDAZOLAM 100MG/100ML PMX 100 ML IV PRN (06:45)
[2023-01-03] MEDS ORDERED: FENTANYL 2500MCG/250ML PMX 250 ML IV ONE (06:45)
[2023-01-03] MEDS: FENTANYL CITRATE 2,500 MCG in SODIUM CHLORIDE 0.9% 200 ML IV PRN ×2 (07:02→12:19)
[2023-01-03 08:46] LABS: BG BASE EXCESS 10.4 mmol/L (-2.0-2.0); BG CARBOXYHEMOGLOBIN 0.1 % (0.5-1.5); BG DEOXYHEMOGLOBIN 7.3 % (0.0-5.0); BG FRACTION INSPIRED OXYGEN 30; BG METHEMOGLOBIN 0.3 % (0.0-1.5); BG OXYGEN SATURATION 92.7 % (92.0-98.5); BG OXYHEMOGLOBIN 92.3 % (94.0-97.0); BG PCO2 68.2 mmHg (35.0-45.0); BG PH 7.364 (7.350-7.450); BG PO2 71.2 mmHg (75.0-100.0); BG SAMPLE SITE RIGHT RADIAL; BG TOTAL HEMOGLOBIN 11.4 g/dL (12.0-18.0); BG VENT MODE VENT - AC
[2023-01-03] MEDS: PANTOPRAZOLE SODIUM 40 MG/VIAL IV SCH (09:12)
[2023-01-03] MEDS: CHOLECALCIFEROL (D3) 1000 UNIT TABLET NG SCH (09:13)
[2023-01-03] MEDS: ASPIRIN 81MG TABLET PO SCH (09:13)
[2023-01-03] MEDS: AMLODIPINE 10MG TABLET PO SCH (09:14)
[2023-01-03] MEDS: QUETIAPINE FUMARATE 50MG TABLET PO SCH (09:14)
[2023-01-03] MEDS: LOSARTAN POTASSIUM 25 MG TABLET PO SCH (09:15)
[2023-01-03] MEDS: ENOXAPARIN 80MG/0.8ML SYR SUBCUT SCH ×2 (09:16→21:06)
[2023-01-03] MEDS: MIDAZOLAM HCL 100 MG in SODIUM CHLORIDE 0.9% 100 ML IV PRN (09:17)
[2023-01-03] MEDS ORDERED: CHLORDIAZEPOXIDE 5 MG CAPSULE PO SCH (14:00)
[2023-01-03] MEDS: ATORVASTATIN CALCIUM 40MG TABLET PO SCH (21:06)
[2023-01-04] VITALS (99 sets, daily range): BP systolic 112–183; BP diastolic 31–108; PULSE 86–120; RESP 11–31; TEMP 97.8–99.2; O2SAT 97–98
[2023-01-04] MEDS: IPRATROPIUM/ALBUTEROL 0.5-3(2.5)MG/3ML NEB HHN SCH ×6 (00:28→20:18)
[2023-01-04] MEDS: MIDAZOLAM HCL 100 MG in SODIUM CHLORIDE 0.9% 100 ML IV PRN (00:54)
[2023-01-04] MEDS: METHYLPREDNISOLONE SOD SUCC 40MG VIAL IV SCH ×3 (02:37→17:02)
[2023-01-04 05:02] LABS: HEMATOCRIT 36.8 % (36.0-48.0); HEMOGLOBIN 11.8 g/dL (12.0-16.0); MEAN CORPUSCULAR HGB CONC 32.1 g/dL (31.0-37.0); MEAN CORPUSCULAR VOLUME 87.1 fL (81.0-99.0); PLATELET 287 x1000/uL (130-400); RED BLOOD CELL COUNT 4.22 mill/uL (4.2-5.4); RED CELL DISTRIBUTION WIDTH 13.8 % (11.6-14.6)
[2023-01-04 05:11] LABS: CHLORIDE 101 mEq/L (98-107); INDEX HEMOLYSI 1 (1-3); INDEX ICTERIC 1 (1-4); INDEX LIPEMIC 1 (1-3); POTASSIUM 4.6 mEq/L (3.5-5.1); SODIUM 141 mEq/L (136-145)
[2023-01-04 05:17] LABS: CALCIUM 8.1 mg/dL (8.5-10.1); CARBON DIOXIDE 35 mEq/L (21-32); CREATININE 0.6 mg/dL (0.6-1.3); GLUCOSE 110 mg/dL (70-105); PHOSPHORUS 3.2 mg/dL (2.5-4.9); UREA NITROGEN BLOOD 24 mg/dL (7-21)
[2023-01-04] MEDS: NITROGLYCERIN OINT 1GM/INCH UDPKT TD SCH ×3 (05:36→21:16)
[2023-01-04] MEDS: CHLORDIAZEPOXIDE 5 MG CAPSULE PO SCH ×3 (05:36→21:15)
[2023-01-04] MEDS: QUETIAPINE FUMARATE 50MG TABLET PO SCH (08:07)
[2023-01-04] MEDS: ENOXAPARIN 80MG/0.8ML SYR SUBCUT SCH ×2 (08:07→21:17)
[2023-01-04] MEDS: PANTOPRAZOLE SODIUM 40 MG/VIAL IV SCH (08:07)
[2023-01-04] MEDS: CHOLECALCIFEROL (D3) 1000 UNIT TABLET NG SCH (08:07)
[2023-01-04] MEDS: ASPIRIN 81MG TABLET PO SCH (08:07)
[2023-01-04] MEDS: AMLODIPINE 10MG TABLET PO SCH (08:08)
[2023-01-04] MEDS: LOSARTAN POTASSIUM 25 MG TABLET PO SCH (08:08)
[2023-01-04 09:16] LABS: BG BASE EXCESS 12.3 mmol/L (-2.0-2.0); BG CARBOXYHEMOGLOBIN 0.3 % (0.5-1.5); BG DEOXYHEMOGLOBIN 7.6 % (0.0-5.0); BG FRACTION INSPIRED OXYGEN 30; BG HCO3 ACT 37.9 mmol/L (22.0-26.0); BG OXYGEN SATURATION 92.4 % (92.0-98.5); BG OXYHEMOGLOBIN 92.1 % (94.0-97.0); BG PCO2 53.6 mmHg (35.0-45.0); BG PH 7.467 (7.350-7.450); BG PO2 65.6 mmHg (75.0-100.0); BG SAMPLE SITE RIGHT RADIAL; BG TOTAL HEMOGLOBIN 11.7 g/dL (12.0-18.0); BG VENT MODE VENT - SIMV
[2023-01-04 11:26] LABS: BG BASE EXCESS 12.8 mmol/L (-2.0-2.0); BG CARBOXYHEMOGLOBIN 0.5 % (0.5-1.5); BG DEOXYHEMOGLOBIN 4.2 % (0.0-5.0); BG FRACTION INSPIRED OXYGEN 35; BG HCO3 ACT 38.1 mmol/L (22.0-26.0); BG METHEMOGLOBIN 0.3 % (0.0-1.5); BG OXYGEN SATURATION 95.8 % (92.0-98.5); BG PH 7.483 (7.350-7.450); BG PO2 80.1 mmHg (75.0-100.0); BG SAMPLE SITE RIGHT RADIAL; BG TOTAL HEMOGLOBIN 12.2 g/dL (12.0-18.0); BG VENT MODE VENT - CPAP
[2023-01-04] MEDS ORDERED: METHYLPREDNISOLONE SOD SUCC 125MG VIAL IV NR (11:45)
[2023-01-04] MEDS ORDERED: RACEPINEPHRINE 2.25% 0.5ML NEB VIAL HHN PRN (11:45)
[2023-01-04] MEDS ORDERED: FAMOTIDINE 20MG/2ML VIAL IV NR (12:00)
[2023-01-04] MEDS ORDERED: IPRATROPIUM/ALBUTEROL 0.5-3(2.5)MG/3ML NEB HHN NR (12:00)
[2023-01-04] MEDS ORDERED: RACEPINEPHRINE 2.25% 0.5ML NEB VIAL HHN SCH (12:45)
[2023-01-04] MEDS ORDERED: LORAZEPAM 2MG/ML CPJ IV NR (12:45)
[2023-01-04] MEDS: ATORVASTATIN CALCIUM 40MG TABLET PO SCH (21:15)
[2023-01-04] MEDS: ACETAMINOPHEN 325MG TABLET PO PRN (21:15)
[2023-01-05] VITALS (28 sets, daily range): BP systolic 117–156; BP diastolic 53–115; PULSE 58–98; RESP 9–25; TEMP 97.8–98.5; O2SAT 95–99
[2023-01-05] MEDS: IPRATROPIUM/ALBUTEROL 0.5-3(2.5)MG/3ML NEB HHN SCH ×4 (00:21→20:20)
[2023-01-05] MEDS: METHYLPREDNISOLONE SOD SUCC 40MG VIAL IV SCH ×3 (01:52→17:42)
[2023-01-05] MEDS ORDERED: KETOROLAC 15MG/ML VIAL IV NR ×2 (02:00→20:30)
[2023-01-05] MEDS: CHLORDIAZEPOXIDE 5 MG CAPSULE PO SCH ×3 (06:14→21:01)
[2023-01-05] MEDS: NITROGLYCERIN OINT 1GM/INCH UDPKT TD SCH ×3 (06:14→21:01)
[2023-01-05 08:59] LABS: BG BASE EXCESS 13.3 mmol/L (-2.0-2.0); BG CARBOXYHEMOGLOBIN 0.7 % (0.5-1.5); BG DEOXYHEMOGLOBIN 5.3 % (0.0-5.0); BG METHEMOGLOBIN 0.3 % (0.0-1.5); BG OXYGEN SATURATION 94.6 % (92.0-98.5); BG OXYHEMOGLOBIN 93.7 % (94.0-97.0); BG PCO2 55.4 mmHg (35.0-45.0); BG PH 7.465 (7.350-7.450); BG PO2 74.7 mmHg (75.0-100.0); BG SAMPLE SITE RIGHT BRACHIAL; BG TOTAL HEMOGLOBIN 10.8 g/dL (12.0-18.0); BG VENT MODE NASAL CANNULA
[2023-01-05 09:35] LABS: CHLORIDE 102 mEq/L (98-107); INDEX HEMOLYSI 1 (1-3); INDEX ICTERIC 1 (1-4); INDEX LIPEMIC 1 (1-3); POTASSIUM 3.4 mEq/L (3.5-5.1); SODIUM 142 mEq/L (136-145)
[2023-01-05 09:38] LABS: HEMATOCRIT 32.1 % (36.0-48.0); HEMOGLOBIN 10.4 g/dL (12.0-16.0); MEAN CORPUSCULAR HEMOGLOBIN 28.2 pg (28.0-32.0); MEAN CORPUSCULAR HGB CONC 32.6 g/dL (31.0-37.0); MEAN CORPUSCULAR VOLUME 86.5 fL (81.0-99.0); PLATELET 241 x1000/uL (130-400); RED CELL DISTRIBUTION WIDTH 13.5 % (11.6-14.6); WHITE BLOOD COUNT 9.1 x1000/uL (4.5-11.0)
[2023-01-05 09:41] LABS: CARBON DIOXIDE 37 mEq/L (21-32); CREATININE 0.8 mg/dL (0.6-1.3); GLUCOSE 93 mg/dL (70-105); PHOSPHORUS 3.4 mg/dL (2.5-4.9); UREA NITROGEN BLOOD 18 mg/dL (7-21)
[2023-01-05] MEDS: AMLODIPINE 10MG TABLET PO SCH (10:31)
[2023-01-05] MEDS: ASPIRIN 81MG TABLET PO SCH (10:31)
[2023-01-05] MEDS: CHOLECALCIFEROL (D3) 1000 UNIT TABLET NG SCH (10:31)
[2023-01-05] MEDS: PANTOPRAZOLE SODIUM 40 MG/VIAL IV SCH (10:31)
[2023-01-05] MEDS: QUETIAPINE FUMARATE 50MG TABLET PO SCH (10:32)
[2023-01-05] MEDS: ENOXAPARIN 80MG/0.8ML SYR SUBCUT SCH (10:32)
[2023-01-05] MEDS: LOSARTAN POTASSIUM 25 MG TABLET PO SCH (10:32)
[2023-01-05] MEDS ORDERED: POTASSIUM CHLORIDE 20MEQ TABLET SR PO NR (15:00)
[2023-01-05] MEDS ORDERED: NALOXONE HCL 0.4MG/ML VIAL IV PRN (15:30)
[2023-01-05] MEDS ORDERED: IPRATROPIUM/ALBUTEROL 0.5-3(2.5)MG/3ML NEB HHN PRN (16:45)
[2023-01-05] MEDS: ENOXAPARIN 60MG/0.6ML SYR SUBCUT SCH (20:50)
[2023-01-05] MEDS: ATORVASTATIN CALCIUM 40MG TABLET PO SCH (20:51)
[2023-01-06] VITALS (13 sets, daily range): BP systolic 112–166; BP diastolic 60–107; PULSE 70–99; RESP 10–25; TEMP 96.9–98; O2SAT 99–100
[2023-01-06] MEDS: ACETAMINOPHEN 325MG TABLET PO PRN ×2 (00:37→05:06)
[2023-01-06] MEDS: IPRATROPIUM/ALBUTEROL 0.5-3(2.5)MG/3ML NEB HHN SCH ×4 (02:05→20:09)
[2023-01-06] MEDS: CHLORDIAZEPOXIDE 5 MG CAPSULE PO SCH ×3 (05:05→21:35)
[2023-01-06] MEDS: NITROGLYCERIN OINT 1GM/INCH UDPKT TD SCH ×3 (05:06→21:39)
[2023-01-06] MEDS: PANTOPRAZOLE SODIUM 40 MG/VIAL IV SCH (09:53)
[2023-01-06] MEDS: AMLODIPINE 10MG TABLET PO SCH (09:53)
[2023-01-06] MEDS: ASPIRIN 81MG TABLET PO SCH (09:54)
[2023-01-06] MEDS: CHOLECALCIFEROL (D3) 1000 UNIT TABLET NG SCH (09:54)
[2023-01-06] MEDS: QUETIAPINE FUMARATE 50MG TABLET PO SCH (09:54)
[2023-01-06] MEDS: LOSARTAN POTASSIUM 25 MG TABLET PO SCH (09:54)
[2023-01-06] MEDS: METHYLPREDNISOLONE SOD SUCC 40MG VIAL IV SCH ×2 (09:55→17:05)
[2023-01-06] MEDS: ENOXAPARIN 60MG/0.6ML SYR SUBCUT SCH ×2 (10:17→21:37)
[2023-01-06] MEDS ORDERED: KETOROLAC 30MG/ML VIAL IV PRN (12:45)
[2023-01-06] MEDS ORDERED: GABAPENTIN 100MG CAPSULE PO PRN (12:45)
[2023-01-06] MEDS ORDERED: PANT20TA17 MT (13:07)
[2023-01-06] MEDS ORDERED: NALD0.2T3 MT (13:07)
[2023-01-06] MEDS ORDERED: BUDE6HFA INH (13:07)
[2023-01-06] MEDS ORDERED: UMEC62.5 INH (13:07)
[2023-01-06] MEDS ORDERED: HYDR2TAB7 MT (13:07)
[2023-01-06] MEDS ORDERED: OXYC-580 MT (13:07)
[2023-01-06 18:08] LABS: HEMATOCRIT 35.4 % (36.0-48.0); HEMOGLOBIN 11.7 g/dL (12.0-16.0); MEAN CORPUSCULAR HEMOGLOBIN 28.6 pg (28.0-32.0); MEAN CORPUSCULAR HGB CONC 33.2 g/dL (31.0-37.0); MEAN CORPUSCULAR VOLUME 86.1 fL (81.0-99.0); PLATELET 342 x1000/uL (130-400); RED BLOOD CELL COUNT 4.11 mill/uL (4.2-5.4); RED CELL DISTRIBUTION WIDTH 13.7 % (11.6-14.6); WHITE BLOOD COUNT 10.7 x1000/uL (4.5-11.0)
[2023-01-06 18:14] LABS: CHLORIDE 105 mEq/L (98-107); INDEX HEMOLYSI 1 (1-3); INDEX ICTERIC 1 (1-4); INDEX LIPEMIC 1 (1-3); SODIUM 143 mEq/L (136-145)
[2023-01-06 18:21] LABS: CALCIUM 8.8 mg/dL (8.5-10.1); CARBON DIOXIDE 33 mEq/L (21-32); CREATININE 0.6 mg/dL (0.6-1.3); GLUCOSE 134 mg/dL (70-105); PHOSPHORUS 3.8 mg/dL (2.5-4.9); UREA NITROGEN BLOOD 19 mg/dL (7-21)
[2023-01-06] MEDS: ATORVASTATIN CALCIUM 40MG TABLET PO SCH (21:35)
[2023-01-07] VITALS: BP 118/71; PULSE 85; RESP 16; TEMP 97.1
[2023-01-07] MEDS: ACETAMINOPHEN 325MG TABLET PO PRN ×2 (01:55→20:15)
[2023-01-07] MEDS: NITROGLYCERIN OINT 1GM/INCH UDPKT TD SCH ×3 (06:00→22:06)
[2023-01-07] MEDS: CHLORDIAZEPOXIDE 5 MG CAPSULE PO SCH ×3 (06:00→20:19)
[2023-01-07] MEDS: METHYLPREDNISOLONE SOD SUCC 40MG VIAL IV SCH (08:48)
[2023-01-07] MEDS: PANTOPRAZOLE SODIUM 40 MG/VIAL IV SCH (08:48)
[2023-01-07] MEDS: CHOLECALCIFEROL (D3) 1000 UNIT TABLET NG SCH (08:48)
[2023-01-07] MEDS: ENOXAPARIN 60MG/0.6ML SYR SUBCUT SCH ×2 (08:49→20:19)
[2023-01-07] MEDS: ASPIRIN 81MG TABLET PO SCH (08:49)
[2023-01-07] MEDS: LOSARTAN POTASSIUM 25 MG TABLET PO SCH (08:49)
[2023-01-07] MEDS: AMLODIPINE 10MG TABLET PO SCH (08:49)
[2023-01-07] MEDS: QUETIAPINE FUMARATE 50MG TABLET PO SCH (08:49)
[2023-01-07 14:48] VITALS: PULSE 85; RESP 16
[2023-01-07] MEDS: IPRATROPIUM/ALBUTEROL 0.5-3(2.5)MG/3ML NEB HHN SCH ×2 (14:48→20:25)
[2023-01-07 20:00] VITALS: BP 146/67; PULSE 85; RESP 18; TEMP 97.6
[2023-01-07] MEDS: ATORVASTATIN CALCIUM 40MG TABLET PO SCH (20:19)
[2023-01-08] VITALS (8 sets, daily range): BP systolic 126–143; BP diastolic 75–81; PULSE 72–98; RESP 18–24; TEMP 97–98.8
[2023-01-08] MEDS: IPRATROPIUM/ALBUTEROL 0.5-3(2.5)MG/3ML NEB HHN SCH ×4 (01:30→21:09)
[2023-01-08] MEDS: ACETAMINOPHEN 325MG TABLET PO PRN (02:41)
[2023-01-08] MEDS: CHLORDIAZEPOXIDE 5 MG CAPSULE PO SCH (05:07)
[2023-01-08] MEDS: NITROGLYCERIN OINT 1GM/INCH UDPKT TD SCH ×3 (05:07→22:00)
[2023-01-08] MEDS: AMLODIPINE 10MG TABLET PO SCH (09:00)
[2023-01-08] MEDS: LOSARTAN POTASSIUM 25 MG TABLET PO SCH (09:00)
[2023-01-08] MEDS: ENOXAPARIN 60MG/0.6ML SYR SUBCUT SCH ×2 (09:00→21:00)
[2023-01-08] MEDS: PANTOPRAZOLE SODIUM 40 MG/VIAL IV SCH (09:00)
[2023-01-08] MEDS: CHOLECALCIFEROL (D3) 1000 UNIT TABLET NG SCH (09:00)
[2023-01-08] MEDS: ASPIRIN 81MG TABLET PO SCH (09:00)
[2023-01-08] MEDS: PREDNISONE 20MG TABLET PO SCH (09:00)
[2023-01-08] MEDS: QUETIAPINE FUMARATE 50MG TABLET PO SCH (09:00)
[2023-01-08] MEDS: ATORVASTATIN CALCIUM 40MG TABLET PO SCH (21:00)
[2023-01-08] MEDS ORDERED: NITROGLYCERIN OINT 1GM/INCH UDPKT TD SCH (22:00)
[2023-01-09] VITALS (7 sets, daily range): BP systolic 110–140; BP diastolic 65–88; PULSE 85–94; RESP 18–24; TEMP 96–98.4; O2SAT 96
[2023-01-09] MEDS: IPRATROPIUM/ALBUTEROL 0.5-3(2.5)MG/3ML NEB HHN SCH ×3 (01:26→13:49)
[2023-01-09] MEDS: NITROGLYCERIN OINT 1GM/INCH UDPKT TD SCH ×2 (06:00→13:42)
[2023-01-09] MEDS: PANTOPRAZOLE SODIUM 40 MG/VIAL IV SCH (08:17)
[2023-01-09] MEDS: QUETIAPINE FUMARATE 50MG TABLET PO SCH (09:00)
[2023-01-09] MEDS: ENOXAPARIN 60MG/0.6ML SYR SUBCUT SCH (09:00)
[2023-01-09] MEDS: AMLODIPINE 10MG TABLET PO SCH (09:00)
[2023-01-09] MEDS: LOSARTAN POTASSIUM 25 MG TABLET PO SCH (09:00)
[2023-01-09] MEDS: ASPIRIN 81MG TABLET PO SCH (09:00)
[2023-01-09] MEDS: CHOLECALCIFEROL (D3) 1000 UNIT TABLET NG SCH (09:40)
[2023-01-09] MEDS: PREDNISONE 20MG TABLET PO SCH (09:44)
[2023-01-09] MEDS ORDERED: LIDOCAINE 5% PATCH TOP SCH (11:45)
[2023-01-09] MEDS ORDERED: ASPI-1160 PO (13:12)
[2023-01-09] MEDS ORDERED: GABA-529 PO (13:12)
[2023-01-09] MEDS ORDERED: LIP40 PO (13:12)
[2023-01-09] MEDS ORDERED: LOSA25TA3 PO (13:12)
[2023-01-09] MEDS ORDERED: AMLO10TA80 PO (13:12)
== END 2023-01-09 18:11 | DRG 207 ==
LOC: ER 12:57 → EDBEDREQSVC 19:47 → EDBEDREQ 19:47 → MICUSO 19:59 → EDBEDREQ 20:06 → MICUSO 12-26 09:39 → 5EST 01-05 04:09 → 8WST 01-06 15:06
PROVIDERS: ADMIT Internal Medicine; ATTEND Internal Medicine
PROC: 5A1955Z Respiratory Ventilation, Greater than 96 Consecutive Hours (ICD-10-PCS; principal; 2022-12-25)
PROC: 0BH17EZ Insertion of Endotracheal Airway into Trachea, Via Natural or Artificial Opening (ICD-10-PCS; 2022-12-25)
PROC: 5A09357 Assistance with Respiratory Ventilation, Less than 24 Consecutive Hours, Continuous Positive Airway Pressure (ICD-10-PCS; 2022-12-25)
PROC: 02HV33Z Insertion of Infusion Device into Superior Vena Cava, Percutaneous Approach (ICD-10-PCS; 2022-12-31)
PROC: B548ZZA Ultrasonography of Superior Vena Cava, Guidance (ICD-10-PCS; 2022-12-31)
DX: J96.02 Acute respiratory failure with hypercapnia (principal); I21.A1 Myocardial infarction type 2; G93.41 Metabolic encephalopathy; J69.0 Pneumonitis due to inhalation of food and vomit; I50.21 Acute systolic (congestive) heart failure; E87.29 Other acidosis; I42.9 Cardiomyopathy, unspecified; Z99.11 Dependence on respirator [ventilator] status; R00.0 Tachycardia, unspecified; J96.01 Acute respiratory failure with hypoxia; E83.39 Other disorders of phosphorus metabolism; E87.6 Hypokalemia; G89.4 Chronic pain syndrome; R59.0 Localized enlarged lymph nodes; I11.0 Hypertensive heart disease with heart failure; I25.10 Atherosclerotic heart disease of native coronary artery without angina pectoris; R13.10 Dysphagia, unspecified; I27.20 Pulmonary hypertension, unspecified; I08.1 Rheumatic disorders of both mitral and tricuspid valves; D64.9 Anemia, unspecified; D72.819 Decreased white blood cell count, unspecified; J43.9 Emphysema, unspecified; Z99.81 Dependence on supplemental oxygen; Z88.6 Allergy status to analgesic agent; Z79.899 Other long term (current) drug therapy; Z87.891 Personal history of nicotine dependence; Z93.3 Colostomy status
CPT/HCPCS: 31500; 36415; 36573; 36600; 71045; 71275; 80048; 80053; 80061; 80305; 80320; 81003; 82375; 82550; 82553; 82607; 82746; 82805; 83036; 83540; 83550; 83605; 83735; 83880; 84100; 84145; 84439; 84443; 84478; 84484; 85025; 85027; 85379; 92610; 93005; 93306; 93970; 94002; 94003; 94640; 97162; 97166; 97535; 99291; A6261; C1725; C9113; J0456; J0696; J1650; J1885; J2060; J2185; J2250; J2270; J2354; J2405; J2704; J2920; J2930; J3010; J3475; J3490; J7050; J7060; J7512; Q9957; G0480